=== PATIENT | male | born 1945 | race Caucasian/White ===

== ENCOUNTER → 2019-04-04 | Day surgery (SDC) | payer MEDICARE ==
--- NOTE | 2019-04-02 15:00 | Diagnostic Imaging Report ---
EXAMINATION: CHEST 2 VIEWS INDICATION: Pre-operative COMPARISON: None FINDINGS: LINES/TUBES:None LUNGS:The lungs are well-inflated. No focal consolidation or pulmonary edema. PLEURA:No pleural effusion or pneumothorax. MEDIASTINUM:The cardiomediastinal silhouette appears normal in size and shape. BONES/SOFT TISSUES:No acute osseous injury. ABDOMEN:No free air under the diaphragm. IMPRESSION: No focal pneumonia or pulmonary edema. Signed by: Slick Corrales MD on 04/02/2019 2:57 PM
[~2019-04-04] MED LIST: ACETAMINOPHEN 1000 MG/100 ML IV ONE; ALBUTEROL SULFAT2 MG PO; ASPIRIN81 MG; BUPIVACAINE 0.25% 30ML SDV INJ ONE; CEFAZOLIN SOD 1 GM/NS 50ML 100 ML IV ONE; CENTRUM SILVER1 EAC3; FENTANYL CITRATE/PF 100MCG/2 ML INJ ONE; FLOMAX0.4 MG PO; JANUVIA100 MG PO; LIDOCAINE 1% W/EPINEPHRINE 20 ML VIAL ONE; LIDOCAINE HCL 2% LOCAL INJ 5 ML SDV VIAL INJ ONE; METFORMIN HCL500 MG PO; MIDAZOLAM HCL 2 MG/2 ML VIAL ONE; OMEPRAZOLE40 MG; ONDANSETRON HCL INJ 2MG/ML 2ML 2 MG/ML VIAL ONE; PLAVIX75 MG PO; PRAVASTATIN SOD40 MG; PROPOFOL IV EMULSION 10 MG/ML 20 ML VIAL ONE; SEVOFLURANE INHAL SOLN 250 ML PEN BTL ONE
[2019-04-04 09:50] VITALS: BP 117/69
--- NOTE | 2019-04-04 20:49 | NUR ---
ORTHOPEDICS OPERATIVE NOTE DATE OF SURGERY: PREOPERATIVE DIAGNOSES: Right Knee Complex Medial Meniscus Tear, POSTOPERATIVE DIAGNOSES: Right Knee Complex Medial Meniscus Tear, Plica Syndrome PROCEDURE: RightKnee Arthroscopic Partial Medial Meniscectomy, Chondroplasty, and Excision of Plica SURGEON: Miladis Garcia DO ANESTHESIA: General COMPLICATIONS: None TOURNIQUET: Applied but not inflated. No tourniquet EBL: Minimal INDICATIONS: Due to persistent pain and limitations on activity combined with findings on exam and imaging, the patient requests surgical treatment. Nonopera tive care and alternative surgical options were reviewed. We agreed that this provided the best risk/benefit profile for this patient, understanding and accepting risks of recurrent/persistent symptoms, infection, bleeding, stiffness, neurological/vascular damage, failure to improve and anesthetic complication (as reviewed by anesthesia service). Also, the patient understands that arthroscopic treatment of articular cartilage lesions provides temporary incomplete relief but that meniscal symptoms should be well addressed. 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 Sterile prepping and draping were performed. Antibiotics had been given and a time out performed. After an injection of 1% Lidocaine with Epinephrine in the proposed incision sites, The arthroscope was i nserted via a small lateral parapatellar tendon incision into the patellofemoral space. Under direct visualization, a medial parapatellar tendon portal was created providing a working portal. Diagnostic arthroscopy was performed and the above findings were noted. Within the patellofemoral space, chondromalacia was noted of the patella and opposing trochlea. Within the medial compartment, the medial meniscus was debrided to establish a well-balanced rim, removing approximately 60% of the posterior horn of the medial meniscus. A stable border was created. There was grade 2 chondromalacia, which was debrided to stable borders. Within the intercondylar space, the ACL was visualized and intact The lateral compartment demonstrated a normal lateral meniscus with grade 1 chondromalacia. Nothing was found to be unstable or required debridement. Chondroplasty was performed on the trochlea to provide a stable border and the large impinging Plica was excised with an arthroscopic shaver. The joint was extravasated and .25% marcaine was injected into the knee. The incisions were closed and more local was injected around the portal sites. Steristrips, Xeroform, 4x4s, ABDs and a compressive SHANA bandage were applied. The patient was awakened and transferred to the PACU in satisfactory condition having tolerated the procedure well.
--- OUTSIDE RECORDS SUMMARY | 2019-04-06 13:50 | XMS REPORT ---
Author Author [facility] Address Unknown Phone Unavailable Care Team Providers Care [employer] Name Role Phone Usman BLAKELY Unavailable Unavailable Payers Payer Name Policy Type Policy Number Effective Date Expiration Date Problems This patient has no known problems. Allergies, Adverse Reactions, Alerts Allergy Name Allergy Type Status Severity Reaction(s) Onset Date Inactive Date Treating Clinician Comments No Known Allergies DA Active U 2018-12-28 00:00:00 NO KNOWN CONTRAST MEDIA ALLERG DA Active U 2000-09-24 00:00:00 NO KNOWN OTHER ALLERGIES DA Active U 2000-09-24 00:00:00 No Known Drug Allergies DA Active U 2000-09-24 00:00:00 No Known Food Allergies DA Active U 2000-09-24 00:00:00 Medications This patient has no known medications. Results Test Description Test Time Test Comments Text Results Atomic Results Result Comments CHEST 2 VIEWS 2019-04-02 14:56:00 [facility] [address] [address] Patient Name: RUPERT YOUNGER MR #: [id number] : 1945 Age/Sex: 74/M Req #: [id number] Adm Physician: Ordered by: ANAHI BLAKELY DO Report #: [id number] Location: OR Room/Bed: Procedure: [id number] DX/CHEST 2 VIEWS Exam Date: Exam Time: REPORT STATUS: Signed EXAMINATION: CHEST 2 VIEWS INDICATION: Pre-operative COMPARISON: None FINDINGS: LINES/TUBES:None LUNGS:The lungs are well- inflated. No focal consolidation or pulmonary edema. PLEURA:No pleural effusion or pneumothorax. MEDIASTINUM:The cardiomediastinal silhouette appears normal in size and shape. BONES/SOFT TISSUES:No acute osseous injury. ABDOMEN:No free air under the diaphragm. IMPRESSION: No focal pneumonia or pulmonary edema. Signed by: Sarah Villanueva MD on 04/02/2019 2:57 PM Dictated By: SARAH VILLANUEVA MD 57 Transcribed By: FRED on 04/02/191456 COPY TO: ANAHI BLAKELY DO BASIC METABOLIC PANEL 2018-12-30 05:38:00 SODIUM (test code=NA) 137 mEq/L 134-147 POTASSIUM (test code=K) 4.8 mEq/L 3.4-5.0 CHLORIDE (test code=CL) 106 mEq/L 100-108 CARBON DIOXIDE (test code=CO2) 28 mEq/L 21-33 ANION GAP (test code=GAP) 8 0-20 GLUCOSE (test code=GLU) 121 mg/dL 70-110 BLOOD UREA NITROGEN (test code=BUN) 16 mg/dL 7-18 GLOMERULAR FILTRATION RATE (test code=GFR) 82.9 70-80 Units of measure=ml/min/1.73 m2 CREATININE (test code=CREAT) 0.9 mg/dL 0.6-1.3 CALCIUM (test code=CA) 9.1 mg/dL 8.0-10.5 [id number] 07:51:00* Test Item Value Reference Range Comments GLUBED (test code=GLUBED) 165 MG/DL 70-110 Performed by certified press operator printing at [facility] [id number] 07:06:00* Test Item Value Reference Range Comments ACT-ISTAT (test code=ACTI) 312 SEC 74-137 Performed by certified press operator printing at [facility] BASIC METABOLIC [id number] 14:24:00* Test Item Value Reference Range Comments SODIUM (test code=NA) 140 mEq/L 134-147 POTASSIUM (test code=K) 4.8 mEq/L 3.4-5.0 CHLORIDE (test code=CL) 104 mEq/L 100-108 CARBON DIOXIDE (test code=CO2) 34 mEq/L 21-33 ANION GAP (test code=GAP) 7 0-20 GLUCOSE (test code=GLU) 166 mg/dL 70-110 BLOOD UREA NITROGEN (test code=BUN) 17 mg/dL 7-18 GLOMERULAR FILTRATION RATE (test code=GFR) 65.8 70-80 Units of measure=ml/min/1.73 m2 CREATININE (test code=CREAT) 1.1 mg/dL 0.6-1.3 CALCIUM (test code=CA) 9.7 mg/dL 8.0-10.5 BASIC METABOLIC [id number] 14:17:00* Test Item Value Reference Range Comments SODIUM (test code=NA) 140 mEq/L 134-147 POTASSIUM (test code=K) 4.8 mEq/L 3.4-5.0 CHLORIDE (test code=CL) 104 mEq/L 100-108 CARBON DIOXIDE (test code=CO2) 34 mEq/L 21-33 ANION GAP (test code=GAP) 7 0-20 GLUCOSE (test code=GLU) 166 mg/dL 70-110 BLOOD UREA NITROGEN (test code=BUN) 17 mg/dL 7-18 GLOMERULAR FILTRATION RATE (test code=GFR) 70-80 CREATININE (test code=CREAT) mg/dL 0.6-1.3 CALCIUM (test code=CA) 9.7 mg/dL 8.0-10.5 PROTHROMBIN [id number] 14:12:00* Test Item Value Reference Range Comments PROTHROMBIN TIME PATIENT (test code=PTP) 11.3 SECONDS 9.3-12.9 INTERNATIONAL NORMAL RATIO (test code=INR) 1.0 0.8-1.2 TARGET INR BY INDICATION Indication INR1. Prophylaxis of venous thrombosis 2.0 - 3.0 (orthopedic surgery), Prophylaxis of venous thrombosis (other than high-risk surgery), Treatment of Deep Vein Thrombosis/Pulmonary Embolism, Prevention of systemic embolism - Tissue heart valves, Acute Myocardial Infarction (to prevent systemic embolism), Valvular heart disease, Atrial Fibrillation, Bileaflet mechanical valve in aortic position.2. Mechanical prosthetic valves (high risk), 2.5 - 3.5 Presence of Lupus Anticoagulant or Antiphospholipid Antibodies, Prevention of systemic embolism - Acute Myocardial Infarction (to prevent recurrent infarct). CBC W/AUTO [id number] 14:12:00* Test Item Value Reference Range Comments WHITE BLOOD CELL (test code=WBC) 6.61 x10 3/uL 4.5-11.0 RED BLOOD CELL (test code=RBC) 4.85 x10 6/uL 4.00-5.60 HEMOGLOBIN (test code=HGB) 12.9 g/dL 12.5-16.9 HEMATOCRIT (test code=HCT) 41.9 % 37.5-50.7 MEAN CELL VOLUME (test code=MCV) 86.4 fL 81.0-99.0 MEAN CELL HGB (test code=MCH) 26.6 pg 27.0-33.0 MEAN CELL HGB CONCETRATION (test code=MCHC) 30.8 g/dL 33.0-37.0 RED CELL DISTRIBUTION WIDTH CV (test code=RDW) 13.9 % 11.5-14.5 RED CELL DISTRIBUTION WIDTH SD (test code=RDW-SD) 44.1 fL 37.0-54.0 PLATELET COUNT (test code=PLT) 266 x10 3/uL 150-400 MEAN PLATELET VOLUME (test code=MPV) 9.1 fL 7.0-9.0 NEUTROPHIL % (test code=NT%) 65.3 % 56.0-77.0 IMMATURE GRANULOCYTE % (test code=IG%) 0.3 % 0.0-2.0 LYMPHOCYTE % (test code=LY%) 20.6 % 14.0-32.0 MONOCYTE % (test code=MO%) 11.0 % 4.8-9.0 EOSINOPHIL % (test code=EO%) 2.3 % 0.3-3.7 BASOPHIL % (test code=BA%) 0.5 % 0.0-2.0 NUCLEATED RBC % (test code=NRBC%) 0.0 % 0-0 NEUTROPHIL # (test code=NT#) 4.32 x10 3/uL 2.0-7.6 IMMATURE GRANULOCYTE # (test code=IG#) 0.02 x10 3/uL 0.00-0.03 LYMPHOCYTE # (test code=LY#) 1.36 x10 3/uL 1.0-3.8 MONOCYTE # (test code=MO#) 0.73 x10 3/uL 0.1-0.8 EOSINOPHIL # (test code=EO#) 0.15 x10 3/uL 0.0-0.2 BASOPHIL # (test code=BA#) 0.03 x10 3/uL 0.0-0.2 NUCLEATED RBC # (test code=NRBC#) 0.00 x10 3/uL 0.0-0.1 MANUAL DIFF REQUIRED (test code=MDIFF) NO - XR CHEST 2 [id number] 14:01:00 FAX: Kareem Phan MD [phone] Leon: St: PRE FAX: Harish Bright MD [phone] Name: RUPERT YOUNGER [facility] : 1945 Age/S: 73/M [address] [place] [address] Unit #: [id number] Loc: [place] [address] Phys: Harish Castañeda MD Acct: [id number] Dis Date: Status: PRE [facility] PHONE #: [phone] Exam Date: 12/28/2018 1350 FAX #: [phone] Reason: PRE-OP [facility] EXAMS: CPT CODE: [id number] XR CHEST 2 V 96039 Patient: RUPERT YOUNGER. : 1945; Age: 73 years; Gender: Male. MR: [id number]. Ordering physician: Harish Castañeda MD. CHEST 2 VIEWS: HISTORY: Preoperative evaluation, angina. COMPARISON: Chest x-ray 06/30/2018. FINDINGS: Frontal and lateral views of the chest were obtained. Bilateral calcified granulomas again noted. No infiltrate, pleural effusion or pneumothorax. The cardiomediastinal silhouette and pulmonary vasculature are unremarkable. The partially visualized upper abdomen is unremarkable. IMPRESSION: No acute disease in the chest. SL: [id number] at 1401 Reported and signed by: Yoel Todd M.D. CC: Kareem Kamara MD; Harish Echeverria chnologist: RT [employer](Yovanny) Trnscrd Date/ Time/By: 12/28/2018 (1401) : By: BarbraSL7 Orig Print D/T: S: 12/29/19 (1145) PAGE 1 Signed Report [id number] 15:23:00* Test Item Value Reference Range Comments GLUBED (test code=GLUBED) 95 MG/DL 70-110 Performed by certified press operator printing at [facility] - CT ABD PELVIS [id number] 11:50:00 Name: YOUNGERRUPERT MORALES [facility] : 1945 Age/S: 73 / M [address] [place] [address] Blvd Unit #: [id number] Loc: [place] [address] Phys: Stuart Ventura MD Acct: [id number] Dis Date: Status: ADM IN PHONE #: [phone] Exam Date: 07/01/2018 1113 FAX #: [phone] Reason: DIARRHEA POST ABX TREATMENT, NOW ILEUS ON KUB, EXAMS: CPT CODE: [id number] CT ABD PELVIS W/CONT 54398 PROCEDURE: CT ABDOMEN AND PELVIS WITH CONTRAST INDICATION: Diarrhea, recent antibiotics COMPARISON: KUB dated 07/01/18. TECHNIQUE: Helical imaging was performed diaphragm through the symphysis with multiplanar reconstructions. IV CONTRAST: 100 mL Isovue-300. GI CONTRAST: None. CT imaging performed at this location utilizes radiation dose optimization techniques which include one or more of the following: -Automated exposure control -Adjustment of the mA and/or kV according to patient size -Use of iterative reconstruction technique CT Radiation Dose DLP 665 mGy-cm FINDINGS: LOWER CHEST: The lung bases are clear. LIVER: Hepatic steatosis. No focal hepatic abnormality. GALLBLADDER: Normal. SPLEEN: Normal. PANCREAS: Normal. ADRENALS: Normal. KIDNEYS: Normal. BOWEL: No current CT evidence for colitis given history. Mild mucosal thickening seen involving a mid abdominal small bowel loops with nondifferential small bowel air-fluid levels and no evidence for small bowel obstruction. APPENDIX: Normal. PERITONEUM: No free intraperitoneal fluid or air. RETROPERITONEUM: No adenopathy. The abdominal aorta shows calcified atherosclerotic plaque and is mildly ectatic, 2 cm janene meter. Mesenteric arteries are widely patent on this exam. PA GE 1 Signed Report (CONTINUED) Name: RUPERT YOUNGER [facility] : [birth year] Age/S: 73 / M [address] [place] [address] Blvd Unit #: [id number] Loc: [place] [address] Phys: Stuart Ventura MD Acct: [id number] Dis Date: Status: ADM IN PHONE #: Exam Date: 07/01/2018 1113 FAX #: [phone] Reason: DIARRHEA POST ABX TREATMENT, NOW ILEUS ON KUB, EXAMS: CPT CODE: [id number] CT ABD PELVIS W/CONT 99995 <Continued> PELVIS: The prostate gland is significantly enlarged measuring least 5.5 cm transverse by 5.2 cm AP by 6.2 cm CC. There is circumferential urinary bladder wall thickening. A layering stone is present within the urinary bladder measuring 7 mm in diameter. MUSCULOSKELETAL: The skeleton is intact. IMPRESSION: 1. No CT evidence for colitis given history. There is mild mucosal thickening involving a few mid abdominal small bowel loops with no evidence for bowel obstruction. This is consistent with small bowel enteritis. 2. Hepatic steatosis. 3. Prostate gland hypertrophy. Circumferential urinary bladder wall thickening consistent with chronic bladder outlet obstructi on. 4. Layering urinary bladder stone noted. SL: [id number] at 1150 Reported and signed by: Ramy Hoffman C: Maude Pritchard MD; Stuart Ventura MD Technologist:Christopher Obrien, RT(R) CTDI: DLP: Trnscb Date/Time: 07/01/2018 (1 150) t.YURIY Orig Print D/T: S: 07/01/2018 (3953) CTDI: DLP: PAGE 2 Signed Report [id number] 09:18:00* Test Item Value Reference Range Comments GLUBED (test code=GLUBED) 90 MG/DL 70-110 Performed by certified press operator printing at [facility] [id number] 08:24:00* Test Item Value Reference Range Comments GLUBED (test code=GLUBED) 139 MG/DL 70-110 Performed by certified press operator printing at [facility] BASIC METABOLIC [id number] 08:19:00* Test Item Value Reference Range Comments SODIUM (test code=NA) 139 mEq/L 134-147 POTASSIUM (test code=K) 3.8 mEq/L 3.4-5.0 CHLORIDE (test code=CL) 109 mEq/L 100-108 CARBON DIOXIDE (test code=CO2) 23 mEq/L 21-33 ANION GAP (test code=GAP) 11 0-20 GLUCOSE (test code=GLU) 83 mg/dL 70-110 BLOOD UREA NITROGEN (test code=BUN) 10 mg/dL 7-18 GLOMERULAR FILTRATION RATE (test code=GFR) 95.0 70-80 Units of measure=ml/min/1.73 m2 CREATININE (test code=CREAT) 0.8 mg/dL 0.6-1.3 CALCIUM (test code=CA) 8.2 mg/dL 8.0-10.5 LIPID PROFILE (CORONARY RISK)2018-07-01 08:19:00* Test Item Value Reference Range Comments TRIGLYCERIDES (test code=TRIG) 79 mg/dL 40-150 CHOLESTEROL (test code=CHOL) 157 mg/dL <200 CHOLESTEROL/HDL RATIO (test code=CHOLHDL) 4.03 RATIO 3.43-4.97 RISK ASSOCIATED WITH CHOL/HDL RATIOS: RISK MALE FEMALE1/2 AVERAGE 3.43 3.27AVERAGE 4.97 4.442X AVERAGE 9.55 7.053X AVERAGE 23.39 11.04 NOTE THAT THE REFERENCE VALUE IS RELATEDTO RISK LEVELS RECOMMENDED BY THE NATL.HEART, LUNG, AND BLOOD INST. HDL CHOLESTEROL (test code=HDL) 39.0 mg/dL 32-72 LIPOPROTEIN LDL (test code=LDL) 113 mg/dL 0-100 <100 XDEERTY312-179 NEAR OPTIMAL/ABOVE [id number] [id number] HIGH>DA=456 VERY HIGH*Guidelines provided by the National Cholesterol EducationProgram Adult Treatment Panel III [id number] 08:19:00* Test Item Value Reference Range Comments PHOSPHOROUS (test code=PHOS) 2.4 mg/dL 2.5-4.9 [id number] 08:19:00* Test Item Value Reference Range Comments MAGNESIUM (test code=MAG) 1.80 mg/dL 1.8-2.4 CBC W/AUTO [id number] 08:05:00* Test Item Value Reference Range Comments WHITE BLOOD CELL (test code=WBC) 6.42 x10 3/uL 4.5-11.0 RED BLOOD CELL (test code=RBC) 4.45 x10 6/uL 4.00-5.60 HEMOGLOBIN (test code=HGB) 11.5 g/dL 12.5-16.9 HEMATOCRIT (test code=HCT) 36.4 % 37.5-50.7 MEAN CELL VOLUME (test code=MCV) 81.8 fL 81.0-99.0 MEAN CELL HGB (test code=MCH) 25.8 pg 27.0-33.0 MEAN CELL HGB CONCETRATION (test code=MCHC) 31.6 g/dL 33.0-37.0 RED CELL DISTRIBUTION WIDTH CV (test code=RDW) 14.9 % 11.5-14.5 RED CELL DISTRIBUTION WIDTH SD (test code=RDW-SD) 44.7 fL 37.0-54.0 PLATELET COUNT (test code=PLT) 194 x10 3/uL 150-400 MEAN PLATELET VOLUME (test code=MPV) 9.5 fL 7.0-9.0 NEUTROPHIL % (test code=NT%) 74.7 % 56.0-77.0 IMMATURE GRANULOCYTE % (test code=IG%) 0.5 % 0.0-2.0 LYMPHOCYTE % (test code=LY%) 12.0 % 14.0-32.0 MONOCYTE % (test code=MO%) 10.3 % 4.8-9.0 EOSINOPHIL % (test code=EO%) 2.2 % 0.3-3.7 BASOPHIL % (test code=BA%) 0.3 % 0.0-2.0 NUCLEATED RBC % (test code=NRBC%) 0.0 % 0-0 NEUTROPHIL # (test code=NT#) 4.80 x10 3/uL 2.0-7.6 IMMATURE GRANULOCYTE # (test code=IG#) 0.03 x10 3/uL 0.00-0.03 LYMPHOCYTE # (test code=LY#) 0.77 x10 3/uL 1.0-3.8 MONOCYTE # (test code=MO#) 0.66 x10 3/uL 0.1-0.8 EOSINOPHIL # (test code=EO#) 0.14 x10 3/uL 0.0-0.2 BASOPHIL # (test code=BA#) 0.02 x10 3/uL 0.0-0.2 NUCLEATED RBC # (test code=NRBC#) 0.00 x10 3/uL 0.0-0.1 MANUAL DIFF REQUIRED (test code=MDIFF) NO - XR ABDOMEN 1V (KUB)2018-07-01 07:29:00 FAX: Maude Pritchard [phone] Leon: St: ADM FAX: Jakob Beckwith [phone] Name: RUPERT YOUNGER [facility] : 1945 Age/S: 73/M [address] [place] [address] Unit #: [id number] Loc: G.5513 [facility] [address] Phys: Jakob BeckwithP Acct: [id number] Dis Date: Status: ADM IN PHONE #: [phone] Exam Date: 07/01/2018 0708 FAX #: [phone] Reason: ileus EXAMS: CPT CODE: [id number] XR ABDOMEN 1V (KUB) 24815 ABDOMEN SINGLE VIEW HISTORY: Ileus. COMPARISON: 06/30/18 FINDINGS: There is less overall gaseous distention of bowel. No gross free intraperitoneal air. No abno rmal calcifications identified. IMPRESSION: Im proving overall gaseous distention of bowel from 06/30/18. Otherwise st able. SL:01 at 0729 Reported and signed by: Mike Hernandez M.D. CC: Maude Pritchard MD; Jakob Beckwith Technol ogist: Christel Connelly, RT(R); Cheryl Dupree, RT(R) Trncard Date/Time/ By: 07/01/2018 (07) : By: Sue Orig Print D/T: S: 07/01/2018 (0 732) PAGE 1 Signed Report [id number] 02:24:00* Test Item Value Reference Range Comments GLUBED (test code=GLUBED) 91 MG/DL 70-110 Performed by certified press operator printing at [facility] [id number] 16:17:00* Test Item Value Reference Range Comments GLUBED (test code=GLUBED) 106 MG/DL 70-110 Performed by certified press operator printing at [facility] URINALYSIS [id number] 10:08:00* Test Item Value Reference Range Comments UA COLOR (test code=COLU) YELLOW YEL/STRAW UA APPEARANCE (test code=APPU) CLEAR CLEAR UA GLUCOSE DIPSTICK (test code=DGLUU) NEGATIVE NEGATIVE UA BILIRUBIN DIPSTICK (test code=BILU) NEGATIVE NEGATIVE UA KETONE DIPSTICK (test code=KETU) NEGATIVE NEGATIVE UA SPECIFIC GRAVITY (test code=SGU) 1.005 1.005-1.030 UA BLOOD DIPSTICK (test code=LETICIA) 2+ NEGATIVE UA PH DIPSTICK (test code=AMY) 5.0 5.0-7.0 UA PROTEIN DIPSTICK (test code=PROU) NEGATIVE NEGATIVE UA UROBILINIOGEN DIPSTICK (test code=URO) 0.2 mg/dL 0.2-1.0 UA NITRITE DIPSTICK (test code=RODRI) NEGATIVE NEGATIVE UA LEUKOCYTE ESTERASE DIPSTICK (test code=LEUU) TRACE NEGATIVE UA WBC (test code=WBCU) 10-20 WBC/HPF 0-3 UA RBC (test code=RBCU) 0-3 RBC/HPF 0-3 UA BACTERIA (test code=BACU) NONE SEEN /HPF NONE SEEN UA SQUAMOUS CELLS (test code=SQU) 0-5 /HPF NONE SEEN UA CULT [id number] 10:08:00* Test Item Value Reference Range Comments UA CULTURE NEEDED? (test code=UACULT) YES,WBC>10 & EPI<=25 Criteria Culture Chk Criteria met, Urine Culture in-process. HGBA1C%2018-06-30 09:48:00* Test Item Value Reference Range Comments HGBA1C% (test code=HGBA1C%) 6.7 %A1C 4.8-6.0 - XR CHEST 1 [id number] 09:47:00 FAX: Maude Pritchard [phone] Leon: St: ADM Name: RUPERT WATTS [facility] : [birth year] Age/S: 73/M [address] [place] [address] Unit #: [id number] Loc: G.5513 [place] [address] Phys: Maude Pritchard MD Acct: [id number] Dis Date: Status: ADM IN PHONE #: [phone] Exam Date: 06/30/2018 09 FAX #: [phone] Reason: fever EXAMS: CPT CODE: [id number] XR CHEST 1 V 27457 EXAM: Single view portable AP chest. EXAM DATE: 06/30/2018 at 0819 hours CLINICAL HIS TORY: Fever COMPARISON: None Cardiac size is within normal limits for the level of inspiration at which the image wa s obtained. Several calcified granulomata are noted in the right mid lung. No infiltrates or effusions are identified. Degenerative changes a re identified in the thoracic spine. IMPRESSION: No evidence of acute cardiopulmonary disease. at 0947 Reported and signed by: Tania Young M.D. CC: Maude Pritchard MD Tech nologist: Jesusita Weems RT(R) Trnscrd Date/Ti me/By: 06/30/2018 (6178) : By: Td Orig Print D/T: S: 06/30/2018 (2581) PAGE 1 Signed Report - XR ABDOMEN 1V (KUB)2018-06-30 09:46:00 FAX: Maude Pritchard [phone] Leon: St: ADM Name: RUPERT WATTS [facility] : [birth year] Age/S: 73/M [address] [place] [address] Bl Unit #: [id number] Loc: G.5513 [place] [address] Phys: Maude Pritchard MD Acct: [id number] Dis Date: Status: ADM IN PHONE #: [phone] Exam Date: 06/30/2018929 FAX #: [phone] Reason: diarrhea EXAMS: CPT CODE: [id number] XR ABDOMEN 1V (KUB) 83332 EXAMINATION: Portable single view AP abdomen. Exam Date: 06/30/2018 at 0819 hours CLI NICAL HISTORY: diarrhea COMPARISON: None The extreme upper portion of the abdomen is not included on this exam. Air is identif ied in the colon to the rectal region. There are several loops of minimal ly prominent small bowel noted. No free air is identified. Visualize d osseous structures are unremarkable. IMPRESSION: Findings are most consistent with ileus. at 0946 Reported and signed by: Tania Young M.D. CC: Maude Pritchard MD Techn ologist: Jesusita Weems, RT(R) Trnscrd Date/[place] e/By: 06/30/2018 (0946) : By: Td Orig Print D/T: S: 06/30/2018 (0919) PAGE 1 Signed Report [id number] 08:42:00* Test Item Value Reference Range Comments GLUBED (test code=GLUBED) 121 MG/DL 70-110 Performed by certified press operator printing at [facility] BASIC METABOLIC [id number] 07:34:00* Test Item Value Reference Range Comments SODIUM (test code=NA) 131 mEq/L 134-147 POTASSIUM (test code=K) 3.8 mEq/L 3.4-5.0 CHLORIDE (test code=CL) 103 mEq/L 100-108 CARBON DIOXIDE (test code=CO2) 20 mEq/L 21-33 ANION GAP (test code=GAP) 12 0-20 GLUCOSE (test code=GLU) 124 mg/dL 70-110 BLOOD UREA NITROGEN (test code=BUN) 15 mg/dL 7-18 GLOMERULAR FILTRATION RATE (test code=GFR) 95.0 70-80 Units of measure=ml/min/1.73 m2 CREATININE (test code=CREAT) 0.8 mg/dL 0.6-1.3 CALCIUM (test code=CA) 7.6 mg/dL 8.0-10.5 HEPATIC FUNCTION [id number] 07:34:00* Test Item Value Reference Range Comments TOTAL PROTEIN (test code=PROT) 6.2 g/dL 6.4-8.2 ALBUMIN (test code=ALB) 3.10 g/dL 3.4-5.0 BILIRUBIN TOTAL (test code=BILT) 0.40 mg/dL 0.0-1.0 BILIRUBIN DIRECT (test code=BILD) 0.10 MG/DL 0.0-0.30 BILIRUBIN INDIRECT (test code=BILIND) 0.30 MG/DL SGOT/AST (test code=AST) 38 IUnit/L 15-37 SGPT/ALT (test code=ALT) 41 IUnit/L 15-65 ALKALINE PHOSPHATASE TOTAL (test code=ALKP) 61 IUnit/L 20-125 [id number] 07:34:00* Test Item Value Reference Range Comments MAGNESIUM (test code=MAG) 1.00 mg/dL 1.8-2.4 T4 [id number] 07:34:00* Test Item Value Reference Range Comments T4 FREE (test code=T4F) 1.2 ng/dL 0.77-1.61 THYROID STIMULATING [id number] 07:34:00* Test Item Value Reference Range Comments THYROID STIMULATING HORMONE (test code=TSH) 1.08 0.42-5.47 Results in дмитрий-International Units/mL CBC W/O [id number] 07:03:00* Test Item Value Reference Range Comments WHITE BLOOD CELL (test code=WBC) 10.31 x10 3/uL 4.5-11.0 RED BLOOD CELL (test code=RBC) 4.33 x10 6/uL 4.00-5.60 HEMOGLOBIN (test code=HGB) 11.2 g/dL 12.5-16.9 HEMATOCRIT (test code=HCT) 35.3 % 37.5-50.7 MEAN CELL VOLUME (test code=MCV) 81.5 fL 81.0-99.0 MEAN CELL HGB (test code=MCH) 25.9 pg 27.0-33.0 MEAN CELL HGB CONCETRATION (test code=MCHC) 31.7 g/dL 33.0-37.0 RED CELL DISTRIBUTION WIDTH CV (test code=RDW) 14.3 % 11.5-14.5 RED CELL DISTRIBUTION WIDTH SD (test code=RDW-SD) 42.0 fL 37.0-54.0 PLATELET COUNT (test code=PLT) 193 x10 3/uL 150-400 MEAN PLATELET VOLUME (test code=MPV) 9.1 fL 7.0-9.0
== END | disposition home or self-care (01) ==
LOC: OR 07:22
PROVIDERS: ATTEND Orthopaedic Surgery
DX: S83.231A Complex tear of medial meniscus, current injury, right knee, initial encounter (principal); M67.51 Plica syndrome, right knee; E11.9 Type 2 diabetes mellitus without complications; N40.0 Benign prostatic hyperplasia without lower urinary tract symptoms; I10 Essential (primary) hypertension; K21.9 Gastro-esophageal reflux disease without esophagitis; J45.909 Unspecified asthma, uncomplicated; I25.10 Atherosclerotic heart disease of native coronary artery without angina pectoris; Z79.82 Long term (current) use of aspirin; Z79.84 Long term (current) use of oral hypoglycemic drugs; Z01.811 Encounter for preprocedural respiratory examination
CPT/HCPCS: 29881; 36415; 71046; 82948; J0131; J0690; J2001; J2250; J2405; J2704; J3010